=== PATIENT | male | born 1950 | race Caucasian/White ===

== ENCOUNTER → 2018-02-21 | Outpatient (CLI) | payer OTHER, BC | LOC: ULTRA 08:00 | DX: N28.1 Cyst of kidney, acquired (principal) ==

== ENCOUNTER → 2018-04-03 | Outpatient (CLI) | payer OTHER, BC | LOC: NUC 08:06 → CAT 08:06 | DX: J84.10 Pulmonary fibrosis, unspecified (principal) ==

== ENCOUNTER → 2018-10-16 | Outpatient (CLI) | payer OTHER | LOC: CAT 09:57 | DX: Z13.6 Encounter for screening for cardiovascular disorders (principal); E78.00 Pure hypercholesterolemia, unspecified; I25.10 Atherosclerotic heart disease of native coronary artery without angina pectoris ==

== ENCOUNTER 2018-11-08 05:45 | Day surgery (SDC) | payer OTHER, BC ==
[~2018-11-08] VITALS: Ht 188 cm; Wt 104.3 kg
--- NOTE | ~2018-11-08 | O ---
[facility] [place] [address] [place] [address] OPERATIVE REPORT Name: KAROL AVALOS Room #: [facility]..#: [id number] Admission: 11/08/18 ������������������ Attend Phys: Fermin Bay MD Discharge: 11/08/18 ������������������ Date of : 52 Report #: [id number] THIS REPORT FOR: //name// CC: Fermin Goel MD DATE OF SERVICE: 11/08/2018 PREOPERATIVE DIAGNOSIS: Symptomatic umbilical hernia. POSTOPERATIVE DIAGNOSIS: Symptomatic umbilical hernia. PROCEDURES PERFORMED: Repair of umbilical hernia with medium Ventralex patch. SURGEON: Fermin Bay M.D. ANESTHESIA: General anesthesia. COMPLICATIONS: None. ESTIMATED BLOOD LOSS: 5 mL. DESCRIPTION OF PROCEDURE: With the patient under general anesthesia, IV antibiotic was administered, abdomen was prepped and draped in sterile fashion, timeout was performed. A 0.25% Marcaine was used to anesthetize the skin underneath the umbilicus. A curved incision was made infraumbilically. Incision was carried through skin and subcutaneous tissue. The skin of the umbilicus was lifted off of the hernia sac. The hernia sac was isolated. The hernia sac was then freed from the fascia. The hernia sac was adherent to the fascia on the left side. The anterior and posterior fascia was isolated laterally on the left side and the hernia sac was free from it. Properitoneal space was then dissected free. The properitoneal space was opened up all the way around underneath the fascia. A small 1 cm opening was made in the hernia sac. This was closed with 4-0 PDS. After the sac was closed a medium sized Ventralex patch was easily put into the properitoneal space, opened up well. The fascia edges were then trimmed off. The fascia was then closed with 0 Prolene horizontal mattress fashion x 3. This incorporated the strap of the Ventralex patch. Fascia defect was closed. The strap of the Ventralex patch was then trimmed off above the level of the fascia. Skin of the umbilicus was sewn down to the fascia level. Subcutaneous was also brought together with 4-0 PDS. Skin was closed with 5-0 PDS in running subcuticular fashion. [facility] [address] [place] [address] OPERATIVE REPORT Name: KAROL AVALOS Room #: [facility] [place].R.#: [id number] Admission: 11/08/18 ������������������ Attend Phys: Fermin Bay MD Discharge: 11/08/18 ������������������ Date of : 52 Report #: [id number] Steri-Strips, 4 x 4's, OpSite used for dressing. The patient was taken to recovery room. ��������������������������������������������� ���������������������������������������� By: ��������������������������������������������� 06 18 Fermin Bay MD /nt
[~2018-11-08 05:45] MED LIST: AMLODIPINE BESY10 MG PO; ASPIR 8181 M1 PO; BYSTOLIC 5 MG5 M1 PO; KLOR-CON M2020 MEQ PO; OLMESARTAN-HCT1 EAC1 PO; PROTONIX40 M1 PO; TERAZOSIN HCL5 MG PO; VITAMIN D2000 UNIT PO; ZYLOPRIM300 MG PO
[2018-11-08 07:10] LABS: CALCIUM 9.6 mg/dL (8.5-10.1); POTASSIUM 3.9 mmol/L (3.5-5.1)
[2018-11-08] MEDS ORDERED: PERCOCET PO (09:24)
[2018-11-08 10:26] VITALS: BP 135/59
--- NOTE | 2018-11-08 17:35 | H ---
[facility] [place] [place] [address] HISTORY AND PHYSICAL Name: KAROL AVALOS Room #: [facility] [facility] [place]#: [id number] Admission: 11/08/18 ������������������ Attend Phys: Fermin Bay MD Discharge: 11/08/18 ������������������ Date of : 52 Report #: [id number] THIS REPORT FOR: //name// CC: Fermin Goel MD DATE OF SERVICE: 11/08/2018 PREOPERATIVE DIAGNOSIS: Symptomatic umbilical hernia, here for repair. HISTORY OF PRESENT ILLNESS: The patient is a 68-year-old who was seen by Dr. Goel. The patient was seen by Dr. Goel for yearly physical exam. The patient has been complaining of increasing symptom from his umbilical hernia. The hernia is progressively pushing out more. He noticed it with activity and also when he sits up. The patient does have achiness in this area. The patient is eating without problem. No nausea or vomiting. Bowels are working well. The patient did have a colonoscopy last year, which showed some diverticulosis. No chronic cough or sneezing. He did have a history of pneumonia in the past. He was examined and does have a moderate sized umbilical hernia. He is here for repair of the umbilical hernia. PAST MEDICAL HISTORY: Has a history of high blood pressure, gout, sleep apnea, and prostate cancer. MEDICATIONS: Bystolic 5 mg, amlodipine 10 mg, Tribenzor, Protonix, ketaconazole, allopurinol, aspirin, potassium, vitamin D, fish oil, terazosin, and Viagra as needed. ALLERGIES: CODEINE, which causes itching. PAST SURGICAL HISTORY: Hemorrhoidectomy in 1977. FAMILY HISTORY: There is cancer that runs in the family. Sibling with liver disease. SOCIAL HISTORY: The patient is retired from the . The patient smokes a cigar at this point. He used to smoke cigarettes, but quit 27 years ago. The patient does not drink. REVIEW OF SYSTEMS: The patient does have some reflux type symptoms. Recently diagnosed with prostate cancer. PHYSICAL EXAMINATION: GENERAL: The patient is a well-nourished male, in no acute distress. HEENT: Pupils react to light. Extraocular muscles are intact. Oropharynx is [address] [address] HISTORY AND PHYSICAL Name: KAROL AVALOS Room #: [facility].#: [id number] Admission: 11/08/18 ������������������ Attend Phys: Fermin Bay MD Discharge: 11/08/18 ������������������ Date of : 52 Report #: [id number]. NECK: Soft and supple, no masses. LUNGS: Clear to auscultation. HEART: Regular rate and rhythm. No murmur or gallop. ABDOMEN: Soft with moderate size umbilical hernia, which is partially reducible. No tenderness, no redness, no ascites, no mass in the abdomen. EXTREMITIES: No cyanosis, clubbing, or edema. Motor function and sensory exam normal. IMPRESSION: The patient is a 68-year-old with a symptomatic umbilical hernia, which is progressing. The patient is recommended to have the umbilical hernia repaired. Procedure was discussed. Use of mesh was discussed. Placement of a Ventralex patch in the properitoneal space was discussed and recommended. The patient understands the procedure and wishes to proceed. ��������������������������������������������� <ELECTRONICALLY SIGNED> ���������������������������������������� By: Fermin Bay MD ��������������������������������������������� 11/08/18 1735 [id number] Fermin Bay MD /nt
== END 2018-11-08 11:20 | disposition home or self-care (01) ==
LOC: OR 05:45 → TBA 05:45 → OR 11:20
PROVIDERS: Anesthesiology
DX: K42.9 Umbilical hernia without obstruction or gangrene (principal); I10 Essential (primary) hypertension; K21.9 Gastro-esophageal reflux disease without esophagitis; M10.9 Gout, unspecified; G47.30 Sleep apnea, unspecified; Z85.46 Personal history of malignant neoplasm of prostate; Z79.899 Other long term (current) drug therapy; Z88.8 Allergy status to other drugs, medicaments and biological substances; Z98.890 Other specified postprocedural states; Z87.891 Personal history of nicotine dependence; Z79.82 Long term (current) use of aspirin
CPT/HCPCS: 50010; 50101; 50130; 50386; 50403; 56524; 56525; 56526; 62110; 62900; 70005

== ENCOUNTER → 2019-11-22 | Outpatient (CLI) | payer OTHER, BC ==
[~2019-11-22] MED LIST changes: +PERCOCET PO
== END ==
LOC: SJCVC 13:05
PROVIDERS: ATTEND Internal Medicine Cardiovascular Disease
DX: R00.1 Bradycardia, unspecified (principal); I10 Essential (primary) hypertension; E78.00 Pure hypercholesterolemia, unspecified; R93.1 Abnormal findings on diagnostic imaging of heart and coronary circulation; R00.2 Palpitations; M10.9 Gout, unspecified; M19.90 Unspecified osteoarthritis, unspecified site; Z79.899 Other long term (current) drug therapy; Z79.82 Long term (current) use of aspirin; Z87.891 Personal history of nicotine dependence

== ENCOUNTER 2020-09-06 11:52 | Emergency (ER) | payer OTHER, BC ==
[~2020-09-06] VITALS: Ht 188 cm; Wt 95.3 kg
[2020-09-06 12:36] LABS: HEMATOCRIT 36.8 % (42.0-52.0); HEMOGLOBIN 12.9 gm/dL (14.0-18.0); MCH 31.6 pg (26.0-34.0); MCV 90.3 fL (80.0-100.0); RBC 4.07 mil/uL (4.50-6.00); RDW 13.9 % (10.5-14.5); WBC 6.7 thou/uL (4.0-11.0)
[2020-09-06 12:46] LABS: ANION GAP 10 mmol/L (7-16); BUN 12 mg/dL (7-18); CALCIUM 9.8 mg/dL (8.5-10.1); CHLORIDE 96 mmol/L (98-107); CO2 27 mmol/L (21-32); CREATININE 0.9 mg/dL (0.7-1.3); GLUCOSE 90 mg/dL (74-106); POTASSIUM 3.8 mmol/L (3.5-5.1); SODIUM 133 mmol/L (136-145)
[2020-09-06 12:53] LABS: TROPONIN-I <0.06 ng/mL (<0.06)
[2020-09-06] MEDS ORDERED: CRESTOR5 MG PO (14:10)
[2020-09-06] MEDS ORDERED: FLOMAX0.4 MG PO (14:10)
[2020-09-06] MEDS ORDERED: LORATIDINE 10 M10 M1 PO (14:11)
[2020-09-06 15:12] VITALS: BP 131/64
--- NOTE | 2020-09-06 15:30 | EKG ---
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
== END 2020-09-06 15:18 | disposition home or self-care (01) ==
LOC: ER 11:52
PROVIDERS: Emergency Medicine
DX: R00.2 Palpitations (principal); M10.9 Gout, unspecified; I10 Essential (primary) hypertension; Z88.5 Allergy status to narcotic agent; Z79.899 Other long term (current) drug therapy

== ENCOUNTER → 2020-10-29 | Outpatient (CLI) | payer OTHER, BC ==
[~2020-10-29] MED LIST changes: +CRESTOR5 MG PO; +FLOMAX0.4 MG PO; +LORATIDINE 10 M10 M1 PO
== END ==
LOC: SJCVC 15:02
PROVIDERS: ATTEND Internal Medicine Cardiovascular Disease
DX: R93.1 Abnormal findings on diagnostic imaging of heart and coronary circulation (principal); I10 Essential (primary) hypertension; E78.00 Pure hypercholesterolemia, unspecified; R00.2 Palpitations; M10.9 Gout, unspecified; G47.33 Obstructive sleep apnea (adult) (pediatric); Z87.891 Personal history of nicotine dependence; Z79.899 Other long term (current) drug therapy; Z79.82 Long term (current) use of aspirin; Z88.5 Allergy status to narcotic agent